=== PATIENT | female | born 1970 | race Caucasian/White ===

== ENCOUNTER 2024-11-15 09:52 | Emergency (ER) | payer OTHER ==
--- OUTSIDE RECORDS SUMMARY | 2024-11-15 09:56 | XMS REPORT | Continuity of Care Document ---
Author Name Unknown Address [address] [facility] 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 Hermila Saldaña Attending Clinician Unava ilable LUZ ELENA MORALES Attending Clinician UnavailMr. Rey Carney Attending Clinician Unavail able FLORES HYDE Attending Clinician Unavailable JEOVANY QIU Attending Clinician Unavailable UNASSIGNED, ED Attending Clinician Unavailable OJSE ALEJANDRO DUKES Attending Clinician Unavailable Ayah Augustin Admitting Clinician Unavailable JEOVANY QIU Admitting Clinician Unavailable Payers Payer Name Policy Type Policy Number Effective Date Expirati on Date Source [facility] GOLD STANDARD [[id number]] [facility] [id number] 2023 00:00:00 2024 00:00:00 Problems Condition Name Condition Details Condition Category Status Onset Date Resolution Date Last Treatment Date Treating Clinician Comments Source [id number] Low back pain, unspecifie d back pain laterality , unspecifie d chronicity , unspecifie d whether sciatica present Problem [facility] [id number] Fatigue, unspecifie d type Problem [facility] [id number] Vitamin D deficiency Problem [facility] [id number] Osteoarthr itis, unspecifie d osteoarthr itis type, unspecifie d site Problem [facility] [id number] Right hip pain Problem [facility] [id number] Left hip pain Problem [facility] [id number] Left knee pain, unspecifie d chronicity Problem [facility] Gout Gout, unspecifie d Problem [facility] Allergies, Adverse Reactions, Alerts Allergy Name Allergy Type Status Severity Reaction(s) Onset Date Inactive Date Treating Clinician Comments Source No Known Allergie s NA Active 08-02 08:21: 52 [facility] No Known Allergie s NA Active 08-02 07:59: 04 [facility] No Known Allergie s NA Active 08-01 04:23: 42 [facility] No Known Allergie s NA Active 08-01 04:04: 15 [facility] No Known Allergie s NA Active 08-01 03:24: 43 [facility] Codeine Allergy to substanc e Active Moderate 06-22 00:00: 00 [facility]EL Hydrocod one Allergy to substanc e Active Moderate 06-22 00:00: 00 [facility] Codeine Allergy to substanc e Active Moderate 2018-11 0 00:00: 00 [facility] Hydrocod one Allergy to substanc e Active Moderate 2018-11 025 00:00: [address] [facility] codeine codeine Active Unknown [facility] hydrocod one hydrocod one Active Unknown [facility] Social History Social Habit Start Date Stop Date Quantity Comments Source History of tobacco use TEL Sex Assigned At 1970 00:00:00 1969-11 00:00:00 Female TEL Smoking Status Start Date Stop Date Source Smokes tobacco daily (finding) 2023-05-27 16:59:00 [facility] Medications Ordered Medication Name Filled Medication Name Start Date Stop Date Current Medication? Ordering Clinician Indication Dosage Frequency Signature (SIG) Comments Components Source quetiapine 400 mg tablet 2023-11 00:00: 00 Yes mg Yair Hussein Seroquel 400 mg tablet 2023-11 00:00: 00 Yes 1mg Yair Hussein gabapentin 300 mg capsule 2023-11 00:00: 00 Yes 2mg Yair Hussein Gabapentin 300 MG Gabapentin 300 MG 2022-11 00:00: 00 No QD Gabapentin 300 MG Kenalog 40 mg/ml Kenalog 40 mg/ml 2022-11 00:00: 00 No 60mg [facility] Gabapentin 300 MG Gabapentin 300 MG 2022-11 00:00: 00 No QD Gabapentin 300 MG Kenalog 40 mg/ml Kenalog 40 mg/ml 2022-11 00:00: 00 No 60mg [facility] Acetaminoph en (Tylenol) 325 Mg TAB 06-22 15:04: 00 No 650mg Every 6 Hours [facility] Trimethopri m/Sulfameth oxazole (Bactrim Ds, Septra Ds, Sulfatrim Ds) 1 Each TAB 06-22 15:04: 00 No 1 Twice A Day [facility] Ketorolac Tromethamin e 2018-11 16:29: 00 No 10mg Every 6 Hours as needed for Pain [facility] Methocarbam ol 2018-11 16:29: 00 No 500mg Three Times A Day [facility] Methylpredn isolone 2018-11 16:29: 00 No 1 As Directed [facility] Tramadol Hcl 2018-11 16:29: 00 No 50mg Every 6 Hours [facility] Meloxicam 2018-11 08:18: 00 No 15mg Daily [facility] Tramadol Hcl 2018-11 08:18: 00 No 50mg Every 6 Hours [facility] Acetaminoph en/Codeine Phosphate 04-23 11:46: 00 No 1 Every 6 Hours as needed for Pain [facility] Ibuprofen 04-23 11:46: 00 No 800mg Every 6 Hours as needed for Pain [facility] Ibuprofen (Motrin) 800 Mg TAB 04-23 11:41: 00 04-23 00:00 :00 No 800mg Every 6 Hours as needed for Pain [facility] Tramadol Hcl (Ultram) 50 Mg TAB 04-23 11:41: 00 04-23 00:00 :00 No 50mg Every 6 Hours as needed for Pain [facility] Acetaminoph en/Hydrocod one Bitart 06-30 15:43: 00 No 1 Three Times A Day [facility] Promethazin e Hcl 06-30 15:43: 00 No 25mg Three Times A Day [facility] Acetaminoph en/Hydrocod one Bitart ([facility] 7.5/325) 1 Tab TABLET 06-30 15:43: 00 No 1 Three Times A Day [facility] Promethazin e Hcl (Phenergan) 25 Mg TAB 06-30 15:43: 00 No 25mg Three Times A Day [facility] Doxycycline Hyclate 01-22 08:26: 00 No 100mg Twice A Day [facility] Doxycycline Hyclate (Vibramycin ) 100 Mg CAP 01-22 08:26: 00 No 100mg Twice A Day [facility] Cephalexin 04-27 19:49: 00 No 500mg Four Times Daily [facility] Promethazin e Hcl 04-27 19:49: 00 No 25mg Q6-8H Prn [facility] Propoxyphen e Napsylate/A cetam 04-27 19:49: 00 No 1 Q6h Prn [facility] Trimethopri m/Sulfameth oxazole 04-27 19:49: 00 No 1 Twice A Day [facility] Cephalexin (Keflex) 500 Mg CAP 04-27 19:49: 00 No 500mg Four Times Daily [facility] Promethazin e Hcl (Phenergan) 25 Mg TAB 04-27 19:49: 00 No 25mg Q6-8H Prn [facility] Propoxyphen e Napsylate/A cetam (Darvocet-N 100) 1 Ea TAB 04-27 19:49: 00 No 1 Q6h Prn [facility] Trimethopri m/Sulfameth oxazole (Bactrim Ds, Septra Ds, Sulfatrim Ds) 1 Tab TAB 04-27 19:49: 00 No 1 Twice A Day [facility] Meloxicam 7.5 MG Meloxicam 7.5 MG No 1{table t} QD Meloxicam 7.5 MG hydrOXYzine HCl 50 MG hydrOXYzine HCl 50 MG No 1{table t_as_ne eded} QD hydrOXYzin e HCl 50 MG Albuterol Sulfate HFA 108 (90 Base) MCG/ACT Albuterol Sulfate HFA 108 (90 Base) MCG/ACT No Albuterol Sulfate HFA 108 (90 Base) MCG/ACT Acetaminoph en-Codeine 300-30 MG Acetaminoph en-Codeine 300-30 MG No Acetaminop hen-Codein e 300-30 MG QUEtiapine Fumarate 400 MG QUEtiapine Fumarate 400 MG No 1{table t_at_be dtime} QD QUEtiapine Fumarate 400 MG Colchicine 0.6 MG Colchicine 0.6 MG No 1{table t} Colchicine 0.6 MG Meloxicam 7.5 MG Meloxicam 7.5 MG No 1{table t} QD Meloxicam 7.5 MG hydrOXYzine HCl 50 MG hydrOXYzine HCl 50 MG No 1{table t_as_ne eded} QD hydrOXYzin e HCl 50 MG Albuterol Sulfate HFA 108 (90 Base) MCG/ACT Albuterol Sulfate HFA 108 (90 Base) MCG/ACT No Albuterol Sulfate HFA 108 (90 Base) MCG/ACT Acetaminoph en-Codeine 300-30 MG Acetaminoph en-Codeine 300-30 MG No Acetaminop hen-Codein e 300-30 MG QUEtiapine Fumarate 400 MG QUEtiapine Fumarate 400 MG No 1{table t_at_be dtime} QD QUEtiapine Fumarate 400 MG Colchicine 0.6 MG Colchicine 0.6 MG No 1{table t} Colchicine 0.6 MG Immunizations Ordered Immunization Name Filled Immunization Name Date Status Comments Source Tetanus/Diphtheria/ Acellular Pertussis 2021-06-22 00:00:00 Completed [facility] Tetanus/Diphtheria/ Acellular Pertussis Unknown Completed [facility]EL Vital Signs Vital Name Observation Time Observation Value Comments S rios Body Temperature 2024-06-30 09:53:00 98.1 [degF] [facility]EL Height 2024-06-30 09:53:00 160.761307 cm TE L Weight 2024-06-30 09:53:00 97.105441 kg TEL BMI (Body Mass Index) 2024-06-30 09:53:00 38.0 kg/m2 [facility] Heart Rate 2024-06-30 09:53:00 78 /min [facility]EL Respiratory rate 2024-06-30 09:53:00 18 /min [facility] BP Systolic 2024-06-30 09:53:00 121 mm[Hg] TEL BP Diastolic 2024-06-30 09:53:00 70 mm[Hg] TEL heart rate 2023-11-03 09:00:00 76 /min [facility] weight 2023-11-03 09:00:00 205 [lb_av] [facility] height 2023-11-03 09:00:00 64 [in_i] [facility] bmi 2023-11-03 09:00:00 35.18 kg/m2 [facility] respiratory rate 2023-11-03 09:00:00 18 /min [facility] temperature 2023-11-03 09:00:00 98.0 [degF] [facility] blood pressure systolic 2023-11-03 09:00:00 141 mm[Hg] [facility] blood pressure diastolic 2023-11-03 09:00:00 86 mm[Hg] [facility] Respiratory Rate 2024-10-18 13:18:00 17.00 /min Yair F Keenan BP Systolic 2024-10-18 13:18:00 124 mm[Hg] Step hen Aidan Keenan BP Diastolic 2024-10-18 13:18:00 79 mm[Hg] Ede martin Hussein Weight Measured 2024-10-18 13:18:00 215.00 pounds Yair Hussein Height Measured 2024-10-18 13:18:00 64.37 inches Yair Hussein Body Temperature 2024-10-18 13:18:00 98.30 degrees Yair Hussein Heart Rate 2024-10-18 13:18:00 88.00 /min Ena Hussein BP Diastolic 2021-06-22 15:36:00 90 mm[Hg] [facility] BP Systolic 2021-06-22 15:36:00 150 mm[Hg] [facility] Heart Rate 2021-06-22 15:36:00 78 /min [facility] Respiratory rate 2021-06-22 15:36:00 18 /min [facility] Body Temperature 2021-06-22 15:36:00 98.1 [degF] [facility] Body Temperature 2021-06-22 12:47:00 98.1 [degF] [facility] BP Diastolic 2021-06-22 12:47:00 90 mm[Hg] [facility] BP Systolic 2021-06-22 12:47:00 150 mm[Hg] [facility] Heart Rate 2021-06-22 12:47:00 78 /min [facility] Respiratory rate 2021-06-22 12:47:00 18 /min [facility] BMI (Body Mass Index) 2019-09-10 16:24:00 36.2 kg/m2 [facility] Body Temperature 2019-09-10 14:54:00 98.6 [degF] [facility] Heart Rate 2019-09-10 14:54:00 86 /min [facility] Respiratory rate 2019-09-10 14:54:00 20 /min [facility] BP Systolic 2019-09-10 14:54:00 140 mm[Hg] [facility] BP Diastolic 2019-09-10 14:54:00 88 mm[Hg] [facility] Weight 2019-09-10 14:53:00 211 [lb_av] [facility] Body Temperature 2019-08-28 08:30:00 98.0 [degF] [facility] Heart Rate 2019-08-28 08:30:00 66 /min [facility] Respiratory rate 2019-08-28 08:30:00 18 /min [facility] BP Systolic 2019-08-28 08:30:00 168 mm[Hg] [facility] BP Diastolic 2019-08-28 08:30:00 109 mm[Hg] [facility] Weight 2019-08-28 08:09:00 212.25 [lb_av] [facility] BMI (Body Mass Index) 2019-08-28 08:09:00 36.4 [facility] Rate 2019-08-28 08:08:00 66 /min [facility] Respiratory rate 2019-08-28 08:08:00 18 /min [facility] BP Systolic 2019-08-28 08:08:00 168 mm[Hg] [facility] BP Diastolic 2019-08-28 08:08:00 109 mm[Hg] [facility] Encounters Start Date/Time End Date/Time Encounter Type Admission Type Attending [facility] Care Department Encounter ID Source 2023-11-10 16:09:05 Outpatient Ayah Augustin BPNET BPNET [id number] [facility] 2023-11-03 08:53:00 Outpatient Ayah Augustin BPNET BPNET [id number] [facility] 2024-10-18 13:16:47 2024-10-18 13:16:47 Outpatient SFA SFA [id number] Yair Hussein 2024-10-18 00:00:00 2024-10-18 00:00:00 Outpatient Visit SFA [id number] Yair Bermudez Keenan 2024-06-30 09:48:00 2024-06-30 09:55:00 Emergency ER JAIDA ALE CHRTEL CHRTEL [id number] [facility] 2024-06-30 09:48:00 2024-06-30 09:55:00 Departed Emergency Room [facility] HCIS [id number] [facility]EL 2024-06-23 00:00:00 2024-06-23 00:00:00 Outpatient Hermila Saldaña [facility] [id number] [facility] 2024-06-10 00:00:00 2024-06-10 00:00:00 Outpatient Hermila Saldaña [facility] [id number] [facility] 2024-06-09 00:00:00 2024-06-09 00:00:00 Outpatient Hermila Saldaña [facility] [id number] [facility] 2024-05-10 00:00:00 2024-05-10 00:00:00 Outpatient Hermila Saldaña [facility] [id number] 24 [facility] 2024-04-30 00:00:00 2024-04-30 00:00:00 Outpatient Hermila Saldaña [facility] [id number] [facility] 2024-02-02 00:00:00 2024-02-02 00:00:00 Outpatient Hermila Saldaña [facility] [id number] [facility] 2023-12-11 00:00:00 2023-12-11 00:00:00 Outpatient Hermila Saldaña [facility] [id number] [facility] 2023-12-10 00:00:00 2023-12-10 00:00:00 Outpatient Hermila Saldaña [facility] [id number] [facility] 2023-12-04 00:00:00 2023-12-04 00:00:00 (TEL) BPNET BPNET [id number] [facility] 2023-11-03 00:00:00 2023-11-03 00:00:00 Office Visit, New Pt., Level 4 BPNET BPNET [id number] [facility] 2023-08-29 00:00:00 2023-08-29 00:00:00 Outpatient PiotrHermila [facility] [id number] [facility] 2023-07-29 00:00:00 2023-07-29 00:00:00 Outpatient Hermila Saldaña [facility] [id number] 12 [facility] 2023-07-24 00:00:00 2023-07-24 00:00:00 Outpatient Hermila Saldaña [facility] [id number] [facility] 2023-05-28 00:00:00 2023-05-28 00:00:00 Outpatient Hermila Saldaña [facility] [id number] [facility] 2023-05-27 16:58:00 2023-05-27 17:53:00 Emergency ER LUZ ELENA MORALES CHRTEL CHRTEL [id number] [facility] 2023-05-27 16:58:00 2023-05-27 17:53:00 emergency [id number] 2023-04-29 00:00:00 2023-04-29 00:00:00 Outpatient Hermila Saldaña [facility] [id number] [facility] 2023-04-02 00:00:00 2023-04-02 00:00:00 Outpatient Rey Hernandez [facility] [id number] [facility] 2023-03-05 00:00:00 2023-03-05 00:00:00 Outpatient Rey Hernandez [facility] [id number] [facility] 2023-02-27 00:00:00 2023-02-27 00:00:00 Outpatient Rey Hernandez [facility] [id number] [facility] 2022-03-06 10:02:00 2022-03-06 10:02:00 Outpatient FLORES SPENCE [id number] [facility] 2021-08-01 03:24:00 2021-08-01 03:24:00 Emergency QIUJEOVANY ER [id number] [facility] 2021-06-22 12:37:00 2021-06-22 12:37:00 Departed Emergency Room ER UNASSIGNED, ED LINDY ISRAEL [id number] [facility] 2019-09-10 15:30:00 2019-09-10 16:51:00 Departed Emergency Room LAINE Brandt [id number] [facility] 2019-08-28 08:30:00 2019-08-28 08:33:00 Departed Emergency Room ER ERNSTJOSE ALEJANDRO Chaparro [id number] [facility] 2019-07-02 13:16:00 2019-07-02 13:40:00 Emergency ER ERNSTJOSE ALEJANDRO Chaparro [id number] [facility] Results Test Description Test Time Test Comments Results Result Co mments Source LIPID [id number] 04:08:22* Test Item Value Reference Range Interpretation Comme nts CHOLESTEROL (test code = 2210) 212 MG/DL <200 H TRIGLYCERIDES (test code = 2232) 199 MG/DL <150 H HDL CHOLESTEROL (test code = 2220) 63 MG/DL >39 CALC LDL CHOL (test code = 2237) 117 MG/DL <100 H NOTE: CALCULATED LDL IS BASED ON IGNACIA-REINA METHOD WHICHINCLUDES ADJUSTABLE TRIGLYCERIDE:VLDL CHOLESTEROL RATIO.THIS FACTOR VARIES BY MEASURED TRIGLYCERIDE AND NON-HDLCHOLESTEROL CONCENTRATIONS WITH INCREASED CALCULATED LDL SEENIN HIGHER TRIGLYCERIDE OR LOWER NON-HDL SPECIMENS. FOR MOREINFORMATION, SEE CLIENT ANNOUNCEMENT AT [email or web address] RISK RATIO LDL/HDL (test code = 2238) 1.86 RATIO <3.22 COMPREHENSIVE METABOLIC [id number] 04:08:22* Test Item Value Reference Range Interpretation Comme nts GLUCOSE (test code = 2217) 110 MG/DL 70-99 H BUN (test code = 2208) 15 MG/DL 6-20 CREATININE (test code = 2214) 0.93 MG/DL 0.60-1.30 eGFR (2020 CKD-EPI) (test code = 35230) 73 ML/MIN/1.73 >60 CALC BUN/CREAT (test code = 2235) 16 RATIO 6-28 SODIUM (test code = 223) 143 MEQ/L 133-146 POTASSIUM (test code = 2228) 4.6 MEQ/L 3.5-5.4 CHLORIDE (test code = 221) 104 MEQ/L 95-107 CARBON DIOXIDE (test code = 2206) 25 MEQ/L 19-31 CALCIUM (test code = 2209) 9.8 MG/DL 8.5-10.5 PROTEIN, TOTAL (test code = 2228) 6.7 G/DL 6.1-8.3 ALBUMIN (test code = 220) 4.4 G/DL 3.5-5.2 CALC GLOBULIN (test code = 2240) 2.3 G/DL 1.9-3.7 CALC A/G RATIO (test code = 223) 1.9 RATIO 1.0-2.6 BILIRUBIN, TOTAL (test code = 2206) 0.3 MG/DL <=1.2 ALKALINE PHOSPHATASE (test code = 220) 122 U/L 40-133 AST (test code = 2218) 19 U/L 9-40 ALT (test code = 2219) 18 U/L 5-40 UNLESS OTHERWISE INDICATED, ALL TESTING PERFORMED AT [facility] [address] [place] [address] ENTRY LEVEL ACCOUNT REPRESENTATIVE: LAVON WESLEY M.D. [place] NUMBER [id number] [facility] [place]. [id number] HEMOGLOBIN [id number] 02:47:14* Test Item Value Reference Range Interpretation Comme nts HEMOGLOBIN A1c (test code = 63830) 5.4 % 4.2-5.6 LIPID [id number] 00:00:00* Test Item Value Reference Range Interpretation Comme nts CHOLESTEROL (test code = 2210) 212 MG/DL TRIGLYCERIDES (test code = 2232) 199 MG/DL HDL CHOLESTEROL (test code = 2220) 63 MG/DL CALC LDL CHOL (test code = 2237) 117 MG/DL RISK RATIO LDL/HDL (test cod e = 2238) 1.86 RATIO Yair Aidan AustinHEMOGLOBIN [id number] 00:00:00* Test Item Value Reference Range Interpretation Comme nts HEMOGLOBIN A1c (test code = 73931) 5.4 % Yair [id number] 00:00:00* Test Item Value Reference Range Interpretation Comme nts TSH, THIRD GENERATION (test code = 2821) 1.820 UIU/ML Yair HusseinCOMPREHENSIVE METABOLIC [id number] 00:00:00* Test Item Value Reference Range Interpretation Comme nts GLUCOSE (test code = 2217) 110 MG/DL BUN (test code = 2208) 15 MG/DL CREATININE (test code = 2214) 0.93 MG/DL eGFR (2020 CKD-EPI) (test co de = 07000) 73 ML/MIN/1.73 CALC BUN/CREAT (test code = 2235) 16 RATIO SODIUM (test code = 2231) 143 MEQ/L POTASSIUM (test code = 2228) 4.6 MEQ/L CHLORIDE (test code = 2215) 104 MEQ/L CARBON DIOXIDE (test code = 2206) 25 MEQ/L CALCIUM (test code = 2209) 9.8 MG/DL PROTEIN, TOTAL (test code = 2229) 6.7 G/DL ALBUMIN (test code = 2201) 4.4 G/DL CALC GLOBULIN (test code = 2240) 2.3 G/DL CALC A/G RATIO (test code = 2234) 1.9 RATIO BILIRUBIN, TOTAL (test code = 2207) 0.3 MG/DL ALKALINE PHOSPHATASE (test code = 2204) 122 U/L AST (test code = 2218) 19 U/L ALT (test code = 2219) 18 U/L Yair HusseinUS EXTREMITY NON-VAS [id number] 12:34:[address] [id number] IMAGING REPORTPatient Name: NELI COLBY LDate of Service: [id number]: 47 Sex: F Order #: [id number] Room: [facility]: 1970 X-Ray Number: [id number] Record Number: [id number] Hospital Number: [id number] Physician: Winnie SALGADO Physician: ARMANI BACA right breast ultrasound 07/10/2018 HISTORY: Right breast redness and tenderness to touch laterallyGrayscale and color Doppler images are submitted. No comparison.A 1.1 x 0.6 x 1.4 cm mixed echogenicity structure is observed insubcutaneous soft tissues of the right breast at 11:00. This is at thelevel of concern. Findings may be due to abscess or hematoma. Findings arenot clearly typical for neoplastic process at this point.The rest of the breast was not evaluated.IMPRESSION:Right breast findings as discussed. Clinical correlation recommended. Ifthere is further concern, follow-up mammogram and dedicated ultrasound ofthe entirebreast would be more helpful. Recommend at least short intervalfollow-up to document resolution and exclude any other developing process.Electronically Signed By: Glen Salgado M.D., 07/10/2018 12:32 [facility]ATIONegally authenticated by STEFF BURNETT 2018-07-10 12:32:31
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
[2024-11-15] MEDS ORDERED: MUPIROCIN 2% OINT 22GM TUBE TOP ONE (10:29)
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
[2024-11-15 13:30] VITALS: BP 156/101; TEMP 98.4; O2SAT 98
== END 2024-11-15 11:17 | disposition home or self-care (01) ==
LOC: ER 09:52
DX: T23.201A Burn of second degree of right hand, unspecified site, initial encounter (principal); T31.0 Burns involving less than 10% of body surface
CPT/HCPCS: 99283